=== PATIENT | male | born 1970 | race Caucasian/White ===

== ENCOUNTER 2022-10-31 04:42 | Emergency (ER) | payer BC ==
[~2022-10-31] VITALS: Ht 182.8 cm; Wt 142.9 kg
[~2022-10-31 04:42] MED LIST: BACTRIM DS 8001 TAB PO; LEVOFLOXACIN500 MG PO; VICODIN 5/500 505 MG PO; VITAMIN D50000 UNIT PO
[2022-10-31] MEDS ORDERED: NAPHCON-A EYE D15 ML OP (05:03)
[2022-10-31] MEDS ORDERED: ERYTHROMYCIN OPH1 GM OPH (05:03)
== END 2022-10-31 05:32 | disposition home or self-care (01) ==
LOC: ED 04:42
DX: H10.33 Unspecified acute conjunctivitis, bilateral (principal); Z98.890 Other specified postprocedural states

== ENCOUNTER 2023-06-04 15:12 | Emergency (ER) | payer BC ==
[~2023-06-04] VITALS: Ht 182.8 cm; Wt 145.1 kg
[~2023-06-04 15:12] MED LIST changes: +ERYTHROMYCIN OPH1 GM OPH; +NAPHCON-A EYE D15 ML OP
[2023-06-04] MEDS ORDERED: ASPIRIN81 M1 PO (15:33)
[2023-06-04 17:43] LABS: BASO % 0.4 % (0.0-1.0); EOS # 0.1 10*3/uL (0.0-0.4); EOS % 1.2 % (1.0-4.0); HEMATOCRIT 42.6 % (42.0-52.0); LYMPH % 25.8 % (27.0-41.0); MEAN CELL VOLUME 87.5 fl (80.0-94.0); MEAN CORPUSCULAR HGB CONC 34.3 g/dl (33.0-37.0); MEAN PLATELET VOLUME 11.4 fl (9.6-12.3); MONO # 0.5 10*3/uL (0.1-1.0); MONO % 6.6 % (3.0-9.0); NEUT # 5.1 10*3/uL (2.3-7.9); NEUT % 65.7 % (47.0-73.0); PLATELET COUNT AUTOMATED 178 10*3/uL (130-400); RED BLOOD COUNT 4.87 10*6/uL (4.50-5.90); RED CELL DISTRI WIDTH 12.1 % (0-14.5); WHITE BLOOD COUNT 7.7 10*3/uL (4.8-10.8)
[2023-06-04 18:04] LABS: ACT PARTIAL THROMBO TIME 29.1 SECONDS (20.0-32.1)
[2023-06-04 18:29] LABS: ALKALINE PHOSPHATASE 85 U/L (46-116); BUN 16 mg/dl (9-23); CHLORIDE 104 mmol/L (98-107); POTASSIUM 3.9 mmol/L (3.4-5.1); SGPT/ALT 26 U/L (10-49); TOTAL PROTEIN 7.1 gm/dL (6.0-8.0)
[2023-06-04] MEDS ORDERED: TRAMADOL HCL50 MG PO (19:21)
== END 2023-06-04 19:29 | disposition home or self-care (01) ==
LOC: ED 15:12
PROVIDERS: Internal Medicine
DX: S82.51XA Displaced fracture of medial malleolus of right tibia, initial encounter for closed fracture (principal); Z98.890 Other specified postprocedural states; X50.1XXA Overexertion from prolonged static or awkward postures, initial encounter; Y93.89 Activity, other specified; Y92.009 Unspecified place in unspecified non-institutional (private) residence as the place of occurrence of the external cause; Y99.8 Other external cause status

== ENCOUNTER → 2023-08-08 | Outpatient (CLI) | payer OTHER, BC ==
[~2023-08-08] MED LIST changes: +ASPIRIN81 M1 PO; +TRAMADOL HCL50 MG PO
== END | disposition home or self-care (01) ==
LOC: MRI 00:39
PROVIDERS: ATTEND Family Medicine
DX: S83.411A Sprain of medial collateral ligament of right knee, initial encounter (principal); S83.203A Other tear of unspecified meniscus, current injury, right knee, initial encounter; S83.241A Other tear of medial meniscus, current injury, right knee, initial encounter; S93.401A Sprain of unspecified ligament of right ankle, initial encounter; S93.601A Unspecified sprain of right foot, initial encounter; M94.261 Chondromalacia, right knee; M25.461 Effusion, right knee; X58.XXXA Exposure to other specified factors, initial encounter; Y93.89 Activity, other specified; Y92.89 Other specified places as the place of occurrence of the external cause; Y99.8 Other external cause status

== ENCOUNTER → 2023-08-09 | Outpatient (CLI) | payer OTHER, BC | END | disposition home or self-care (01) | LOC: MRI 00:47 | PROVIDERS: ATTEND Family Medicine | DX: S83.91XA Sprain of unspecified site of right knee, initial encounter (principal); S93.401A Sprain of unspecified ligament of right ankle, initial encounter; S93.601A Unspecified sprain of right foot, initial encounter; M25.461 Effusion, right knee; M19.071 Primary osteoarthritis, right ankle and foot; M72.2 Plantar fascial fibromatosis; M85.871 Other specified disorders of bone density and structure, right ankle and foot; M25.774 Osteophyte, right foot; X58.XXXA Exposure to other specified factors, initial encounter; Y93.89 Activity, other specified; Y92.89 Other specified places as the place of occurrence of the external cause; Y99.8 Other external cause status ==

== ENCOUNTER → 2025-07-07 | Outpatient (CLI) | payer BC | LOC: ORTHO 08:57 | PROVIDERS: ATTEND Orthopaedic Surgery | DX: M25.521 Pain in right elbow (principal) ==